=== PATIENT | male | born 1995 | race Hispanic/Latino ===

== ENCOUNTER 2016-11-03 17:27 | Emergency (ER) | payer OTHER ==
[~2016-11-03] VITALS: Ht 170.2 cm; Wt 118.2 kg
[~2016-11-03 17:27] MED LIST: ONDA4TAB9 PO
[2016-11-03 18:03] VITALS: BP 134/80; PULSE 85; RESP 16; O2SAT 96
[2016-11-03 19:41] LABS: BASOPHILS % (AUTO) 0.9 % (0-3); EOSINOPHILS % (AUTO) 4.1 % (0-5); MONOCYTES % (AUTO) 6.3 % (4-12); Mean Corpuscular Hemoglobin 31.5 pg (27.0-35.0); Mean Corpuscular Volume 90.5 fL (81-100); NEUTROPHILS % (AUTO) 54.8 % (40-74); Platelet Count 135 bil/L (150-400)
--- NOTE | 2016-11-03 19:57 | ED.REPORT ---
HPI-Abd Pain M Under 40 Date of Service Nov 03, 2016 ED Provider: Emanuel Haynes PA-C History of Present Illness: OCC This is a 21-year-old male who presents for an abdominal CT at the request of his database marketing manager. He has been struggling with abdominal pain since May. His database marketing manager at the [facility] did a liver biopsy October 21, and his pain has continued to worsen level since then. His medicine increasing amount of work. Today he complains of right upper quadrant pain without radiation, denies other symptoms. He denies fever, chills, sweats. He has not noticed any blood in stool, has had no nausea or vomiting. He has been directed that he can safely take Tylenol following his biopsy, has been doing so over the past week at the prescribed amounts-reports it is not adequately controlling his discomfort. He denies any respiratory symptoms. His laboratory studies still continue revealed a mild LFT elevation, however there are no markers of infection, no markers of bleeding. The CT study was obtained, and no definite pathology identified Nursing Notes Stated Complaint: SENT HERE FOR CT Chief Complaint: Male Abdominal Pain Nursing Notes Reviewed: Yes ([employer], [employer] not reconciled. Now on low dose tylenol as approved by hepatology following his liver biopsy. ) Allergies: Coded Allergies: No Known Allergies (Unverified , 05/13/16) Scheduled PRN Ondansetron ODT (Zofran ODT) 4 Mg Tablet 4 MG PO Q4H PRN PRN For Nausea oxyCODONE (oxyCODONE) 5 Mg Tablet 5 MG PO BID PRN PRN For Pain General Time Seen by MD: 19:21 Chief Complaint Other (sent for CT by database marketing manager) Recent Healthcare: Recent doctor visit Similar Sx Previous: Yes Past Medical History Past Medical History Abd pain with abnormal liver function tests of unclear etiology - being worked up at the [facility] by hepatology Past Surgical History liver biopsy October at [facility] Smoking History Current Every Day Smoker Social History Other Social History: Smokeless tobacco, Good social support, Local resident Ambulatory Status Independent Review of Systems General: Denies fever, chills, malaise. HEENT: Denies congestion, headache, sore throat. Respiratory: Denies dyspnea, cough, shortness of breath, wheezing. Cardiovascular: Denies chest pain, palpitations. Gastrointestinal: Denies vomiting, diarrhea, admits abdominal pain. Otherwise as noted in HPI. Basic Review of Systems ENT: Hearing NL, No pain, No nasal congestion, No pharyngeal pain Hematologic: No bleeding, No bruising Skin: No bruising, No rash Allergy / Immune: No allergy Neurologic: NL mental status, No weakness Psychiatric: Normal thought content Constitutional: Reports: Fatigue, Denies: Chills, Fever GI: Reports: Abdominal pain Complete sys rev & neg: except as marked. Physical Exam General: Well appearing, well developed, well nourished, no acute distress. Head: Atraumatic, normocephalic. Eyes: No scleral icterus or injection. No discharge. Vision grossly intact. ENT: Voice clear, hearing grossly intact. Respiratory: Regular rate and rhythm. Breath sounds present, clear to auscultation and equal bilaterally. Cardiovascular: Regular rate and rhythm, without murmur, gallop or rub. No pedal edema. Gastrointestinal: Abdomen flat mild left upper quadrant tenderness without guarding or rebound. Negative Aiken sign. Bowel sounds normoactive. Skin: Warm and dry. No jaundice Neurological: Grossly nonfocal. Psychological: Alert and oriented. Speech appropriate, linear and logical. Behavior appropriate. Initial Vital Signs Vital Signs (First) Date Time Temp Pulse Resp B/P Pulse Ox O2 Delivery O2 Flow Rate FiO2 11/03/16 18:03 36.6 85 16 134/80 96 Room Air Initial VS: Reviewed, Vital signs normal Head / Eyes: Atraumatic, Normocephalic, PERRL ENT: Mucous membranes moist, Conjunctiva normal, No scleral icterus Lymphatic: No lymphadenopathy Skin: Warm, Dry, No cyanosis Neurologic: Alert, Oriented, Nonfocal Psychiatric: Mood/affect normal General/Constitutional: Awake, Alert, No acute distress, Well appearing Respiratory / Chest: Atraumatic, Breath sounds NL, Breath sounds = bilat, No respiratory distress, No rales, No rhonchi, No wheezing, No stridor Cardiovascular: Heart rate NL, Regular rhythm, Heart sounds NL, Peripheral circulation NL Abdomen: Atraumatic, Soft, Non-tender, McBurney's non-tender, No guarding, No rebound Abdomen is nontender to palpation. There is no Aiken's, the patient points to his right upper quadrant area discomfort-but again is not tender. I do not appreciate clinical hepatomegaly There is no jaundice Head / Eyes: Atraumatic, Normocephalic, PERRL, Cornea clear No jaundice ENT: Atraumatic Neurologic: Oriented X3, Speech NL, No motor deficits, No sensory deficits Skin: Atraumatic, Color NL, No rash, Warm, Dry, Intact Psychiatric: Affect NL, Mood NL, Cognitive function NL, Judgment/insight NL No signs of encephalopathy Interpretation & Diagnostics Lab Results Interpretation Result Diagram: 11/03/16192911/03/161929 Test 11/03/16 19:30 White Blood Count 8.2th/mm3 (3.8-10.1) Red Blood Count 5.04mil/mm3 (4.40-5.80) Hemoglobin 15.9g/dL (13.8-17.2) Hematocrit 45.6% (41.0-50.0) Mean Corpuscular Volume 90.5fL (81-100) Mean Corpuscular Hemoglobin 31.5pg (27.0-35.0) Mean Corpuscular Hemoglobin Concent 34.9% (32.0-37.0) Red Cell Distribution Width 12.7% (12.3-15.4) Platelet Count 135bil/L (150-400) Neutrophils (%) (Auto) 54.8% (40-74) Lymphocytes (%) (Auto) 33.7% (14-46) Monocytes (%) (Auto) 6.3% (4-12) Eosinophils (%) (Auto) 4.1% (0-5) Basophils (%) (Auto) 0.9% (0-3) Sodium Level 138mEq/L (134-144) Potassium Level 3.8mEq/L (3.5-5.2) Chloride Level 99mEq/L (97-108) Carbon Dioxide Level 25mmol/L (18-29) Blood Urea Nitrogen 6mg/dL (6-20) Creatinine 0.71mg/dL (0.76-1.27) Estimat Glomerular Filtration Rate 149mL/min (>59) Glucose Level 82mg/dL (60-99) Lactic Acid Level 1.1mmol/L (0.4-2.0) Calcium Level 9.7mg/dL (8.5-10.1) Magnesium Level 1.8mg/dL (1.6-2.6) Total Bilirubin 0.4mg/dL (0.0-1.2) Aspartate Amino Transf (AST/SGOT) 444U/L (0-50) Alanine Aminotransferase (ALT/SGPT) 776U/L (0-44) Alkaline Phosphatase 130U/L (25-150) Total Protein 8.0g/dL (6.4-8.4) Albumin 4.8g/dL (3.4-5.0) Lipase 31U/L (13-60) Lab Results Interpretation: CBC normal, no leukocytosis, normal hematocrit CMP elevated LFTs CT Abd / Pelvis Interpretation CT ABD HEPATIC PROTOCOL: IMPRESSION: 1. No acute intra-abdominal findings. Normal appendix. 2. Homogeneous hepatic enhancement. No findings to explain elevated liver enzymes. Dictated by: Elise Noonan M.D. on 11/03/2016 at 20:51 Interpretation / Wet Read by: Interpret - Radiologist Re-Eval/Medical Decision Med Decision/Clinical Course This patient was initially seen and a workup initiated by the mid-level provider , but I personally interviewed and examined this patient, I have reviewed laboratory studies and imaging studies. I have talked with the database marketing manager at the . This is a 21-year-old male with right upper quadrant pain, and abnormal liver function tests who is followed by hepatology at the . They are pursuing a workup as the etiology of his pain and LFTs remains unknown. The patient underwent a biopsy in the past 2 weeks, has been feeling slightly worse, fatigue , and still having right upper quadrant pain-so was referred by his database marketing manager to come in for reevaluation. The database marketing manager requested a liver study CT scan, and screening labs. On exam the patient has normal vitals. He is clinically well-appearing. He does not have a surgical abdomen, he points to the pain at the right side but is not particular tender. He has no signs of a surgical abdomen. He has no jaundice. He has no respiratory symptoms. He overall appears well. Laboratory studies continue demonstrate mild LFT abnormalities. His CT imaging is normal. There are no markers of infection, no markers of bleeding, no findings of a complication, no indication of pulmonary disease either clinically radiata graphically. A definitive cause of his symptoms remains unclear. However at this stage no signs of need for additional emergent studies or admission are present either. Patient remains a bit frustrated that a definitive cause of his symptoms and liver function tests remains unknown. He is also concerned because he has been missing work and still has moderate pain. I have therefore prescribing some oxycodone 5 mg twice a day-without Tylenol as he is currently taking some Tylenol under the direction of the database marketing manager-to help alleviate symptoms of his acute pain, but recommended he go ahead and make another appointment to follow-up the biopsy results and next steps with the database marketing manager Dr. Baptiste. I have faxed the laboratory test results to the database marketing manager office, and requested a CT scan be sent electronically to the so that she can review it more easily. Routine precautions reviewed. Source of Hx: Old records Re-Evaluation/Progress : Time of Eval: 21:57 Patient Status: Condition improved Re-Evaluation/Progress Note: Discussed CT results. Pt feels much better. Pt reports that he has recently been taking Tylenol for the pain without relief. Differential Diagnosis: Positive: Acute abdominal pain, Negative: Acute coronary syndrome, Aortic dissection, Bladder outlet obstruct , Bowel obstruction, Cholangitis, Contusion abdominal wall, Esophageal rupture, Gun shot wound abdomen, Peritonitis, Pyelonephritis, Stab wound abdomen, Unstable angina, Volvulus Patient Discharge & Departure Primary Impression: Abdominal pain Abdominal location: right upper quadrant Qualified Code: R10.11 - Right upper quadrant pain Additional Impression: Elevated liver enzymes Disposition: Home Discharge Condition All VS Reviewed: Yes Condition: Improved Additional Instructions: 1. Your test today still did not reveal a definitive cause of your pain, or elevated liver function tests. 2. However there are no signs of complications, no signs of bleeding, no markers of infection. 3. Your CT imaging not reveal a clear cause of things-and the images were sent electronically to the [facility] view by you database marketing manager. 4. You can continue the Tylenol as previously directed. 5. I have written for some oxycodone 5 mg 1 tablet up to twice a day. Use sparingly. Note: This medication contains a narcotic and causes drowsiness. No driving for least 4-6 hours after taking. 6. Call for an appointment with Dr. Baptiste (your database marketing manager) for follow up. Referrals: Roxanna Robertson MD (PCP) Attending Statement This note was started by the mid-level provider. However I personally interviewed and examined the patient. I reviewed all the laboratory studies, and I have reviewed the CT imaging. I have dictated the medical decision making component. copies to: Roxanna Robertson MD, Seth PA-C Nov 03, 2016 19:57 VIANEY GONSALEZ Nov 03, 2016 22:01 Davi Castrejon MD Nov 03, 2016 22:16
[2016-11-03 20:06] LABS: Magnesium 1.8 mg/dL (1.6-2.6)
[2016-11-03 20:57] VITALS: BP 122/78; PULSE 82; O2SAT 96
--- NOTE | 2016-11-03 20:57 | DRSVH ---
PROCEDURE: CT ABDOMEN HEPATIC PROTOCOL INDICATIONS: abdominal pain, elevated liver enzymes TECHNIQUE: 4 phase scanning was performed. Non-contrast 5 mm axial sections acquired from the diaphragm to the iliac crests. Following the administration of intravenous contrast, 5 mm thick arterial-phase, buddy l venous-phase, and 5-minute delayed phase images were acquired through the liver. 5 mm thick wiseman l and sagittal reformats were performed. For radiation dose reduction, the following was used: auto mated exposure control, adjustment of mA and/or kV according to patient size. COMPARISON: None. FINDINGS: Image quality: Excellent. Lung bases: Lung bases are clear. Heart size is normal. Liver: The liver demonstrates homogeneous enhancement. No suspicious mass lesions or findings to sugg est extravasation after recent hepatic biopsy. Other solid organs: Gallbladder is unremarkable. Biliary system is non dilated. Pancreas is normal in morphology. Spleen is normal in size and enhancement. No adrenal nodules. Both kidneys demonst rate normal size and enhancement, without hydronephrosis or nephrolithiasis. Nodes and vessels: No retroperitoneal or mesenteric adenopathy by size criteria. Aorta and inferior vena cava are normal in size. Bowel and peritoneum: Unenhanced bowel loops are normal in caliber. The appendix is thin walled and gas filled. No free fluid or air. Bones: No suspicious bony lesions. No vertebral body compression fractures. Miscellaneous: No ventral hernias. IMPRESSION: 1. No acute intra-abdominal findings. Normal appendix. 2. Homogeneous hepatic enhancement. No findings to explain elevated liver enzymes. Dictated by: Elise Noonan M.D. on 11/03/2016 at 20:51 Approved by: Elise Noonan M.D. on 11/03/2016 at 20:56
[2016-11-03] MEDS ORDERED: OXYC5TAB72 PO (22:07)
[2016-11-03 22:32] VITALS: BP 128/90; PULSE 74; O2SAT 96
== END 2016-11-03 22:35 | disposition home or self-care (01) ==
LOC: SED 17:27
DX: R10.11 Right upper quadrant pain (principal); R74.8 Abnormal levels of other serum enzymes; F17.200 Nicotine dependence, unspecified, uncomplicated; Z98.890 Other specified postprocedural states
CPT/HCPCS: 36415; 74170; 80053; 83605; 83690; 83735; 85025; 96374; 99285; J2270; Q9967